=== PATIENT | male | born 1970 | race American Indian/Alaskan Native ===

== ENCOUNTER 2016-12-04 09:12 | Emergency (ER) | payer BC ==
[2016-12-04] MEDS ORDERED: CATAPRES PO ONE (09:57)
--- NOTE | 2016-12-04 10:03 | Emergency Department Report ---
Chief Complaint: High BP Stated Complaint: ELEVATED B/P Time Seen by Provider: 12/04/16 09:55 - HPI History of Present Illness: 46-year-old male with history of hypertension presents today with elevated blood pressure levels. Patient states that he usually takes clonidine 0.2 mg twice daily and HCTZ 25 mg once a day but he ran out of his blood pressure medications 4 days ago. Complaining of blurred vision which he states is usually present when his blood pressure is elevated. Denies headache, dizziness , chest pain, shortness of breath, abdominal pain. - ROS Review of Systems: Per HPI - Exam Vital Signs: Vital Signs 12/04/16 09:20 Temperature 98.3 F Pulse Rate 114 H Respiratory 16 Rate Blood Pressure 185/123 O2 Sat by Pulse 98 Oximetry Physical Exam: General: 46-year-old male in no acute distress. Well-developed, well-nourished. CV: Tachycardic. Regular rhythm. Lungs: Clear to auscultation bilaterally. Abdomen: No tenderness to palpation. No guarding or rebound tenderness. MSE screening note: Focused history and physical exam performed. Due to findings the following was ordered: ED Disposition for MSE Condition: Stable
[2016-12-04 10:55] LABS: Anion Gap 18 mmol/L; Blood Urea Nitrogen 12 mg/dL (9-20); Calcium 9.3 mg/dL (8.4-10.2); Carbon Dioxide 25 mmol/L (22-30); Chloride 96.1 mmol/L (98-107); Glucose 189 mg/dL (75-100); Potassium 3.6 mmol/L (3.6-5.0); Sodium 135 mmol/L (137-145)
[2016-12-04 10:59] LABS: Hematocrit 44.7 % (35.5-45.6); Hemoglobin 15.6 gm/dl (11.8-15.2); Mean Corpuscular Hemoglobin 34 pg (28-32); Mean Corpuscular Volume 97 fl (84-94); Red Blood Count 4.62 M/mm3 (3.65-5.03); White Blood Count 4.3 K/mm3 (4.5-11.0)
[2016-12-04 11:00] LABS: Basophils % (Auto) 0.7 % (0.0-1.8); Eosinophils % (Auto) 0.8 % (0.0-4.3); Mean Corpuscular HGB Conc 35 % (32-34); Platelet Count 185 K/mm3 (140-440); Red Cell Distribution Width 12.5 % (13.2-15.2)
[2016-12-04 11:37] VITALS: BP 188/129
== END 2016-12-04 22:32 | disposition left against medical advice (07) ==
LOC: ED 09:12
DX: H53.8 Other visual disturbances (principal); I10 Essential (primary) hypertension; Z53.21 Procedure and treatment not carried out due to patient leaving prior to being seen by health care provider
CPT/HCPCS: 36415; 80048; 85025

== ENCOUNTER 2016-12-05 08:05 | Emergency (ER) | payer BC ==
[2016-12-05] MEDS ORDERED: CATAPRES ONE (17:10)
[2016-12-05] MEDS ORDERED: CATAPRES PO ONE (17:14)
--- NOTE | 2016-12-05 19:02 | Emergency Department Report ---
ED General Adult HPI - General Chief complaint: High BP Time Seen by Provider: 12/05/16 18:53 Source: patient Mode of arrival: Ambulatory Limitations: No Limitations - History of Present Illness Initial comments: Patient reports being out of his clonidine as well as his chloride hydrochlorothiazide which she takes for his blood pressure. He states that when his blood pressure is elevated he feels a little bit of blurriness in his vision. He denies any chest pain or headache he does have the mild blurriness of his vision currently. Patient is specifically asking only for prescriptions of his routine medications. He was given 0.2 mg of clonidine prior to my arrival here today. He has no other specific complaints at this time. He does indicate he has primary physician he will be able to follow-up in the next 2 or 3 weeks. Onset/Timin -: days(s) Severity scale (0 -10): 0 Improves with: none Worsens with: none Associated Symptoms: other (vision blurriness) Treatments Prior to Arrival: none - Related Data Home Medications Medication Instructions Recorded Confirmed Last Taken Hum Insulin NPH/Reg Insulin Hm 100 unit SQ BID 07/21/13 07/21/13 Unknown [Humulin 70-30 Pen] Previous Rx's Medication Instructions Recorded Last Taken Type Hydrochlorothiazide [HCTZ] 25 mg PO QDAY #30 tablet 07/18/16 Unknown Rx cloNIDine [Catapres] 0.1 mg PO BID #60 tablet 07/18/16 Unknown Rx Hydrochlorothiazide [HCTZ] 25 mg PO QDAY #30 tablet 12/05/16 Unknown Rx cloNIDine [Catapres] 0.2 mg PO BID #60 tablet 12/05/16 Unknown Rx Allergies Allergy/AdvReac Type Severity Reaction Status Date / Time lisinopril Allergy Unknown Verified 12/04/16 09:20 ED Review of Systems ROS: Stated complaint: Other details as noted in HPI Constitutional: denies: chills, fever Eyes: vision change. denies: eye pain, eye discharge ENT: denies: ear pain, throat pain Respiratory: denies: cough, shortness of breath, wheezing Cardiovascular: denies: chest pain, palpitations Endocrine: no symptoms reported Gastrointestinal: denies: abdominal pain, nausea, diarrhea Genitourinary: denies: urgency, dysuria Musculoskeletal: denies: back pain, joint swelling, arthralgia Skin: denies: rash, lesions Neurological: denies: headache, weakness, paresthesias Psychiatric: denies: anxiety, depression Hematological/Lymphatic: denies: easy bleeding, easy bruising ED Past Medical Hx - Past Medical History Previous Medical History?: Yes Hx Hypertension: Yes Hx Diabetes: Yes - Surgical History Past Surgical History?: No - Social History Smoking Status: Never Smoker Substance Use Type: None - Medications Home Medications: Home Medications Medication Instructions Recorded Confirmed Last Taken Type Hum Insulin NPH/Reg Insulin Hm 100 unit SQ BID 07/21/13 07/21/13 Unknown History [Humulin 70-30 Pen] Hydrochlorothiazide [HCTZ] 25 mg PO QDAY #30 tablet 07/18/16 Unknown Rx cloNIDine [Catapres] 0.1 mg PO BID #60 tablet 07/18/16 Unknown Rx Hydrochlorothiazide [HCTZ] 25 mg PO QDAY #30 tablet 12/05/16 Unknown Rx cloNIDine [Catapres] 0.2 mg PO BID #60 tablet 12/05/16 Unknown Rx ED Physical Exam - General Limitations: No Limitations General appearance: alert, in no apparent distress - Head Head exam: Present: atraumatic, normocephalic - Eye Eye exam: Present: normal appearance - ENT ENT exam: Present: mucous membranes moist - Neck Neck exam: Present: normal inspection - Respiratory Respiratory exam: Present: normal lung sounds bilaterally. Absent: respiratory distress - Cardiovascular Cardiovascular Exam: Present: regular rate, normal rhythm. Absent: systolic murmur, diastolic murmur, rubs, gallop - GI/Abdominal GI/Abdominal exam: Present: soft, normal bowel sounds - Rectal Rectal exam: Present: deferred - Extremities Exam Extremities exam: Present: normal inspection - Back Exam Back exam: Present: normal inspection - Neurological Exam Neurological exam: Present: alert, oriented X3, normal gait. Absent: motor sensory deficit - Psychiatric Psychiatric exam: Present: normal affect, normal mood - Skin Skin exam: Present: warm, dry, intact, normal color. Absent: rash ED Course Vital Signs 12/05/16 12/05/16 12/05/16 17:04 17:05 18:49 Pulse Rate 93 H 87 Respiratory 16 16 Rate Blood Pressure 202/123 184/117 [Left] O2 Sat by Pulse 99 99 Oximetry 12/05/16 19:09 Pulse Rate 88 Respiratory 20 Rate Blood Pressure 191/123 [Left] O2 Sat by Pulse Oximetry - Reevaluation(s) Reevaluation #1: 12/06/16 00:40 Patient is well-appearing here. Blood pressure is noted to be quite elevated. He does have his clonidine which she has taken. I am not inclined to try to lower his blood pressure more precipitously at this time. We will have him continue with his routine medications. Prescriptions provided. No concerning features noted. Critical care attestation.: If time is entered above; I have spent that time in minutes in the direct care of this critically ill patient, excluding procedure time. ED Disposition Clinical Impression: Hypertension Qualifiers: Hypertension type: essential hypertension Qualified Code(s): I10 - Essential ( primary) hypertension Disposition: DISCHARGED TO HOME OR SELFCARE Is pt being admited?: No Does the pt Need Aspirin: No Condition: Stable Instructions: Hypertension (ED) Prescriptions: cloNIDine [Catapres] 0.2 mg PO BID #60 tablet Hydrochlorothiazide [HCTZ] 25 mg PO QDAY #30 tablet Referrals: PRIMARY CARE [Primary Care Provider] - 3-5 Days Time of Disposition: 19:02
[2016-12-05 19:10] VITALS: BP 191/123
== END 2016-12-05 19:09 | disposition home or self-care (01) ==
LOC: ED 08:05
DX: I10 Essential (primary) hypertension (principal); E11.9 Type 2 diabetes mellitus without complications; Z88.8 Allergy status to other drugs, medicaments and biological substances
CPT/HCPCS: 99282

== ENCOUNTER 2017-03-20 04:42 | Emergency (ER) | payer SELFPAY ==
[~2017-03-20 04:42] MED LIST: CATAPRES ONE; HCTZ ONE
[2017-03-20] MEDS ORDERED: APRESOLINE IV ONE ×2 (07:00→08:54)
[2017-03-20] MEDS ORDERED: APRESOLINE ONE ×3 (07:40→09:11)
--- NOTE | 2017-03-20 08:09 | Emergency Department Report ---
HPI - General Time Seen by Provider: 03/20/17 08:01 - HPI HPI: This is a 46-year-old -[place] male who presents to the emergency department, driving himself in to be seen, with complaint of elevated blood pressure and uncontrolled diabetes with medication noncompliance. The patient says he went to a physical for a new job and was found to have very elevated blood pressure and an elevated hemoglobin A1c and was told that he needs to get his prescriptions refilled and this stuff under control before he will be accepted for this job. He has a history of hypertension for which she used to be on Catapres 0.2 mg and hydrochlorothiazide 25 mg. He also has a history of [id number] diabetes for which she was on metformin at an unknown dose. He has been out of this medication for months as he does not currently have a primary care doctor due to a lack of insurance. He denies any physical complaints related to these abnormal findings including no chest pain, shortness of breath, headache, slurred speech, nausea, vomiting or fever. He has not taken anything for his complaints prior to presentation. No recent travel or sick contacts at home. He is not a tobacco smoker. He denies any illicit drug use. He says that his diet is "not the best" but it is home cooked meals without excessive salt and he denies excessive caffeine use. ED Past Medical Hx - Past Medical History Hx Hypertension: Yes Hx Diabetes: Yes - Social History Smoking Status: Never Smoker Substance Use Type: None - Medications Home Medications: Home Medications Medication Instructions Recorded Confirmed Last Taken Type Hum Insulin NPH/Reg Insulin Hm 100 unit SQ BID 07/21/13 07/21/13 Unknown History [Humulin 70-30 Pen] cloNIDine [Catapres] 0.1 mg PO BID #60 tablet 07/18/16 Unknown Rx Hydrochlorothiazide [HCTZ] 25 mg PO QDAY #30 tablet 12/05/16 Unknown Rx Hydrochlorothiazide [HCTZ] 25 mg PO QDAY #30 tablet 03/20/17 Unknown Rx cloNIDine [Catapres] 0.2 mg PO BID #60 tablet 03/20/17 Unknown Rx metFORMIN [Glucophage] 500 mg PO BID #60 tablet 03/20/17 Unknown Rx ED Review of Systems ROS: Stated complaint: Other details as noted in HPI Comment: All other systems reviewed and negative Constitutional: denies: chills, fever Eyes: denies: eye pain, eye discharge, vision change ENT: denies: ear pain, throat pain Respiratory: denies: cough, shortness of breath, wheezing Cardiovascular: denies: chest pain, palpitations Gastrointestinal: denies: abdominal pain, nausea, diarrhea Genitourinary: denies: urgency, dysuria Musculoskeletal: denies: back pain, joint swelling, arthralgia Skin: denies: rash, lesions Neurological: denies: headache, weakness, paresthesias Physical Exam - Physical Exam Physical Exam: GENERAL: The patient is well-developed well-nourished. HEENT: Normocephalic. Atraumatic. Extraocular motions are intact. Patient has moist mucous membranes. Pupils equal reactive to light bilaterally. NECK: Supple. Trachea is midline. CHEST/LUNGS: Clear to auscultation. There is no respiratory distress noted. HEART/CARDIOVASCULAR: Regular. There is no tachycardia. There is no gallop rub or murmur. ABDOMEN: Abdomen is soft, nontender. Patient has normal bowel sounds. There is no abdominal distention. SKIN: There is no rash. There is no edema. There is no diaphoresis. NEURO: The patient is awake, alert, and oriented. The patient is cooperative. The patient has no focal neurologic deficits. The patient has normal speech and gait. MUSCULOSKELETAL: There is no tenderness or deformity. There is no limitation range of motion. There is no evidence of acute injury. Muscle strength 5 out of 5 for upper and lower extremities bilaterally. ED Medical Decision Making - EKG Data -: EKG Interpreted by Ri EKG shows normal: sinus rhythm, axis, intervals, QRS complexes (LVH), ST-T waves (inferolateral T wave inversions) Rate: normal - EKG Data When compared to previous EKG there are: previous EKG unavailable Interpretation: other (LVH, inferolateral T wave inversions) - Medical Decision Making This is a 46-year-old male presents to the emergency department with hypertensive urgency and a history of diabetes mellitus with medication noncompliance with both his hypertensive and diabetes medications. Patient was given a dose of the Catapres and hydrochlorothiazide [place] that he is usually on, through triage. When this did not provide enough relief of his hypertension, and IV was placed and he was given IV hydralazine. Upon reevaluation his blood pressure has come down to a much more reasonable level. Patient's first blood sugar check was relatively controlled with a blood sugar of about 150. However while the patient was in the emergency department, he was drinking sweet tea, which is her sugar and his Accu-Chek came back showing a blood sugar of about 350. He was given some IV insulin and later a small dose of subcutaneous insulin and his blood sugar has started to come down and will continue to do so. He is asymptomatic without any chest pain, headache, shortness of breath, abdominal pain, nausea or vomiting. He appears safe for discharge home at this time. He has been given referrals for primary care [facility] and has been given a refill prescriptions of his Catapres, hydrochlorothiazide and metformin. We discussed dietary changes. He will return to the ER with any worsening of symptoms or any acute distress. It should be noted that I saw the patient just prior to discharge and his blood pressure was 158/98 which appears appropriate given the hypertensive urgency for which he presented. - Differential Diagnosis DKA, HHNK, hypertensive urgency, renal vascular disease Critical Care Time: No Critical care attestation.: If time is entered above; I have spent that time in minutes in the direct care of this critically ill patient, excluding procedure time. ED Disposition Clinical Impression: Noncompliance with medication regimen Hypertension Qualifiers: Hypertension type: essential hypertension Qualified Code(s): I10 - Essential ( primary) hypertension Uncontrolled diabetes mellitus Qualifiers: Diabetes mellitus type: type 2 Diabetes mellitus complication status: with hyperglycemia Diabetes mellitus chcf insulin use: without chcf use Qualified Code(s): E11.65 - Type 2 diabetes mellitus with hyperglycemia Disposition: DISCHARGED TO HOME OR SELFCARE Is pt being admited?: No Condition: Stable Instructions: Hypertension (ED), Diabetic Hyperglycemia (ED) Additional Instructions: Please follow-up with a primary care doctor in the next few days. Return to the emergency department with any worsening of your symptoms or any acute distress. I have restarted you on your metformin for your diabetes. I have restarted you on your blood pressure medications. Keep a blood pressure log. Keep a blood sugar log. Try to stay away from foods that are high in salt and caffeinated products to help with her blood pressure. Try to stay away from foods that are high in sugars, starches and carbohydrates in order to help with your diabetes. Prescriptions: cloNIDine [Catapres] 0.2 mg PO BID #60 tablet Hydrochlorothiazide [HCTZ] 25 mg PO QDAY #30 tablet metFORMIN [Glucophage] 500 mg PO BID #60 tablet Referrals: PRIMARY CARE, [Primary Care Provider] - 3-5 Days [facility] [Outside] - 3-5 Days TRAVON ALVARADO MD, PHD [Staff Physician] - 3-5 Days Time of Disposition: 10:30
[2017-03-20 12:09] VITALS: BP 150/97
== END 2017-03-20 10:55 | disposition home or self-care (01) ==
LOC: ED 07:55
DX: I10 Essential (primary) hypertension (principal); E11.65 Type 2 diabetes mellitus with hyperglycemia; Z91.14 Patient's other noncompliance with medication regimen
CPT/HCPCS: 82962; 93005; 93010; 96372; 96374; 96375; 99283; J0360; J1815

== ENCOUNTER 2018-05-13 10:59 | Emergency (ER) | payer BC ==
[2018-05-13] MEDS ORDERED: NORVASC PO ONE (11:31)
[2018-05-13 11:40] LABS: Bilirubin,Urine NEG (Negative); Blood,Urine SM (Negative); Color,Urine Yellow (Yellow); Urobilinogen,Urine < 2.0 mg/dL (<2.0)
[2018-05-13 12:07] LABS: Hematocrit 46.6 % (35.5-45.6); Hemoglobin 15.9 gm/dl (11.8-15.2); Mean Corpuscular HGB Conc 34 % (32-34); Mean Corpuscular Hemoglobin 32 pg (28-32); Mean Corpuscular Volume 94 fl (84-94); Platelet Count 180 K/mm3 (140-440); Red Blood Count 4.96 M/mm3 (3.65-5.03); Red Cell Distribution Width 12.1 % (13.2-15.2)
--- NOTE | 2018-05-13 12:10 | Cat Scan Report ---
CRANIAL CT SCAN: Dizziness Serial contiguous axial images were obtained through the cranium. Intravenous contrast material was not administered. The ventricles are normal in size and appearance. There is no mass effect or midline shift. No areas of abnormally increased or decreased attenuation are seen. No mass lesion is seen. No significant change compared with September 06, 2017. The mastoid air cells and visualized portions of the sinuses are normal. IMPRESSION: Cranial CT scan within normal limits.
[2018-05-13 12:16] LABS: INR 0.91 (0.87-1.13)
[2018-05-13 12:17] LABS: Partial Thromboplastin Time 24.1 Sec. (24.2-36.6)
[2018-05-13 12:20] LABS: BUN/Creatinine Ratio 14; Blood Urea Nitrogen 13 mg/dL (9-20); Calcium 10.3 mg/dL (8.4-10.2); Hemolysis Index 4
[2018-05-13 12:23] LABS: Bilirubin,Direct 0.4 mg/dL (0-0.2)
[2018-05-13 12:50] LABS: Basophils % (Manual) 0 % (0.0-1.8); Eosinophils % (Manual) 0 % (0.0-4.3); Total Cells Counted 100
[2018-05-13 12:51] LABS: Platelet Estimate Cons; RBC Morphology Normal
[2018-05-13 13:04] VITALS: BP 206/140
--- NOTE | 2018-05-13 13:10 | XRay Report ---
AP CHEST :05/13/18 10:59:00 CLINICAL: Weakness. COMPARISON:09/06/17 FINDINGS: Normal heart and pulmonary vasculature. The lungs are normally expanded and clear. The bones and soft tissues are normal. IMPRESSION: Normal chest.
[2018-05-13] MEDS ORDERED: ZOFRAN ODT PO ONE (13:11)
[2018-05-13] MEDS ORDERED: ANTIVERT PO ONE ×2 (13:43→14:10)
--- NOTE | 2018-05-13 13:58 | Emergency Department Report ---
ED General Adult HPI - General Chief complaint: Hyperglycemia Stated complaint: HIGH BP Time Seen by Provider: 05/13/18 11:15 Source: patient Mode of arrival: Ambulatory Limitations: No Limitations - History of Present Illness Initial comments: Patient presents to the emergency department with a chief complaint of hypertension and elevated glucose levels. Patient states he has a history of hypertension and diabetes and has not taken medications for over a year. Patient also complains of dizziness and describes the room is spinning. The dizziness is resolved with sitting still but is exacerbated by turning his head. Patient denies chest pain, normal pain, headache. - Related Data Previous Rx's Medication Instructions Recorded Last Taken Type amLODIPine [Norvasc] 10 mg PO QDAY #30 tablet 09/07/17 Unknown Rx metFORMIN [Glucophage] 500 mg PO BID #60 tablet 09/07/17 Unknown Rx Hydrochlorothiazide [Hctz] 12.5 mg PO QDAY #30 capsule 05/13/18 Unknown Rx amLODIPine [Norvasc] 10 mg PO DAILY #30 tab 05/13/18 Unknown Rx metFORMIN [Glucophage] 500 mg PO QDAY #30 tab 05/13/18 Unknown Rx Allergies Allergy/AdvReac Type Severity Reaction Status Date / Time lisinopril Allergy Unknown Verified 12/04/16 09:20 ED Review of Systems ROS: Stated complaint: HIGH BP Other details as noted in HPI Comment: All other systems reviewed and negative Constitutional: denies: chills, fever Eyes: denies: eye pain, eye discharge, vision change ENT: denies: ear pain, throat pain Respiratory: denies: cough, shortness of breath, wheezing Cardiovascular: denies: chest pain, palpitations Endocrine: no symptoms reported Gastrointestinal: denies: abdominal pain, nausea, diarrhea Genitourinary: denies: urgency, dysuria Musculoskeletal: denies: back pain, joint swelling, arthralgia Skin: denies: rash, lesions Neurological: vertigo. denies: headache, weakness, paresthesias Psychiatric: denies: anxiety, depression Hematological/Lymphatic: denies: easy bleeding, easy bruising ED Past Medical Hx - Past Medical History Previous Medical History?: Yes Hx Hypertension: Yes Hx Diabetes: Yes - Surgical History Past Surgical History?: No - Social History Smoking Status: Never Smoker Substance Use Type: Alcohol, Prescribed - Medications Home Medications: Home Medications Medication Instructions Recorded Confirmed Last Taken Type amLODIPine [Norvasc] 10 mg PO QDAY #30 tablet 09/07/17 05/13/18 Unknown Rx metFORMIN [Glucophage] 500 mg PO BID #60 tablet 09/07/17 05/13/18 Unknown Rx Hydrochlorothiazide [Hctz] 12.5 mg PO QDAY #30 capsule 05/13/18 Unknown Rx amLODIPine [Norvasc] 10 mg PO DAILY #30 tab 05/13/18 Unknown Rx metFORMIN [Glucophage] 500 mg PO QDAY #30 tab 05/13/18 Unknown Rx ED Physical Exam - General Limitations: No Limitations General appearance: alert, in no apparent distress - Head Head exam: Present: atraumatic, normocephalic - Eye Eye exam: Present: normal appearance, PERRL, EOMI - ENT ENT exam: Present: mucous membranes moist - Neck Neck exam: Present: normal inspection - Respiratory Respiratory exam: Present: normal lung sounds bilaterally. Absent: respiratory distress, wheezes, rales - Cardiovascular Cardiovascular Exam: Present: regular rate, normal rhythm. Absent: systolic murmur, diastolic murmur, rubs, gallop - GI/Abdominal GI/Abdominal exam: Present: soft, normal bowel sounds. Absent: distended, tenderness - Rectal Rectal exam: Present: deferred - Extremities Exam Extremities exam: Present: normal inspection - Back Exam Back exam: Present: normal inspection - Neurological Exam Neurological exam: Present: alert, oriented X3, CN II-XII intact, other (able to re-create symptoms with rapid eye and head movement). Absent: motor sensory deficit - Psychiatric Psychiatric exam: Present: normal affect, normal mood - Skin Skin exam: Present: warm, dry, intact, normal color. Absent: rash ED Course Vital Signs 05/13/18 05/13/18 05/13/18 11:04 11:47 12:00 Temperature 97.5 F L Pulse Rate 132 H Respiratory 18 Rate Blood Pressure 221/139 199/135 O2 Sat by Pulse 96 97 94 Oximetry 05/13/18 05/13/18 05/13/18 12:19 12:31 12:45 Temperature Pulse Rate Respiratory Rate Blood Pressure 199/135 189/133 206/140 O2 Sat by Pulse 97 94 96 Oximetry ED Medical Decision Making - Lab Data Result diagrams: 05/13/18 11:48 05/13/18 11:48 - Medical Decision Making Discussed results with the patient Critical care attestation.: If time is entered above; I have spent that time in minutes in the direct care of this critically ill patient, excluding procedure time. ED Disposition Clinical Impression: Hypertension, Diabetes Disposition: DC-01 TO HOME OR SELFCARE Is pt being admited?: No Does the pt Need Aspirin: No Condition: Stable Instructions: Hypertension (ED), Diabetes Mellitus Type 2 in Adults (ED) Additional Instructions: Return if worse Prescriptions: amLODIPine [Norvasc] 10 mg PO DAILY #30 tab Hydrochlorothiazide [Hctz] 12.5 mg PO QDAY #30 capsule metFORMIN [Glucophage] 500 mg PO QDAY #30 tab Referrals: PRIMARY CARE, [Primary Care Provider] - 3-5 Days Time of Disposition: 15:25
[2018-05-13] MEDS ORDERED: CATAPRES PO ONE (14:10)
[2018-05-13] MEDS ORDERED: NACL 0.9% 1000 ML 1,000 ML ONE (14:12)
[2018-05-13] MEDS ORDERED: NACL 0.9% 1000 ML 1,000 ML IV ONE ×2 (14:12→15:19)
== END 2018-05-13 15:35 | disposition home or self-care (01) ==
LOC: ED 10:59
DX: I10 Essential (primary) hypertension (principal); E11.65 Type 2 diabetes mellitus with hyperglycemia; R42 Dizziness and giddiness; Z88.8 Allergy status to other drugs, medicaments and biological substances
CPT/HCPCS: 36415; 70450; 71045; 80048; 80074; 81001; 82805; 82962; 83880; 85007; 85025; 85610; 85730; 93005; 93010; 99285; J7030; Q0162

== ENCOUNTER 2019-06-10 10:42 | Emergency (ER) | payer BC, OTHER ==
--- NOTE | 2019-06-10 12:39 | Emergency Department Report ---
ED General Adult HPI - General Chief complaint: Headache Stated complaint: SUDDEN VISION LOSS (R) EYE Time Seen by Provider: 06/10/19 11:16 Source: patient Mode of arrival: Ambulatory Limitations: No Limitations - History of Present Illness Initial comments: Patient presents to the emergency department with a chief complaint of acute nonpainful right visual loss that occurred 2 and half weeks ago. Patient denies any trauma prior to loss of vision. At the initial onset of vision loss the patient states it felt like some pulled the cover over his right eye. Patient denies a headache, shortness breath or chest pain. Patient states the visual loss is only centrally but he can see peripherally -: Sudden Consistency: constant Improves with: none Worsens with: none Associated Symptoms: denies other symptoms Treatments Prior to Arrival: none - Related Data Previous Rx's Medication Instructions Recorded Last Taken Type amLODIPine [Norvasc] 10 mg PO DAILY #30 tab 05/13/18 Unknown Rx hydroCHLOROthiazide [Hctz] 12.5 mg PO QDAY #30 capsule 05/13/18 Unknown Rx Allergies Allergy/AdvReac Type Severity Reaction Status Date / Time lisinopril Allergy Unknown Verified 12/04/16 09:20 ED Review of Systems ROS: Stated complaint: SUDDEN VISION LOSS (R) EYE Other details as noted in HPI Comment: All other systems reviewed and negative Constitutional: denies: chills, fever Eyes: denies: eye pain, eye discharge, vision change ENT: denies: ear pain, throat pain Respiratory: denies: cough, shortness of breath, wheezing Cardiovascular: denies: chest pain, palpitations Endocrine: no symptoms reported Gastrointestinal: denies: abdominal pain, nausea, diarrhea Genitourinary: denies: urgency, dysuria Musculoskeletal: denies: back pain, joint swelling, arthralgia Skin: denies: rash, lesions Neurological: denies: headache, weakness, paresthesias Psychiatric: denies: anxiety, depression Hematological/Lymphatic: denies: easy bleeding, easy bruising ED Past Medical Hx - Past Medical History Previous Medical History?: Yes Hx Hypertension: Yes Hx Diabetes: Yes - Surgical History Past Surgical History?: No - Social History Smoking Status: Never Smoker Substance Use Type: None - Medications Home Medications: Home Medications Medication Instructions Recorded Confirmed Last Taken Type amLODIPine [Norvasc] 10 mg PO DAILY #30 tab 05/13/18 06/10/19 Unknown Rx hydroCHLOROthiazide [Hctz] 12.5 mg PO QDAY #30 capsule 05/13/18 06/10/19 Unknown Rx ED Physical Exam - General Limitations: No Limitations General appearance: alert, in no apparent distress - Head Head exam: Present: atraumatic, normocephalic - Eye Eye exam: Present: normal appearance, PERRL, EOMI, other (pupils equal and reactive to direct and indirect light, peripheral vision intact, pressures are 18 respectively both eyes) - ENT ENT exam: Present: mucous membranes moist - Neck Neck exam: Present: normal inspection - Respiratory Respiratory exam: Present: normal lung sounds bilaterally. Absent: respiratory distress - Cardiovascular Cardiovascular Exam: Present: regular rate, normal rhythm. Absent: systolic murmur, diastolic murmur, rubs, gallop - GI/Abdominal GI/Abdominal exam: Present: soft, normal bowel sounds. Absent: distended, tenderness - Rectal Rectal exam: Present: deferred - Extremities Exam Extremities exam: Present: normal inspection - Back Exam Back exam: Present: normal inspection - Neurological Exam Neurological exam: Present: alert, oriented X3, CN II-XII intact. Absent: motor sensory deficit - Psychiatric Psychiatric exam: Present: normal affect, normal mood - Skin Skin exam: Present: warm, dry, intact, normal color. Absent: rash ED Course Vital Signs 06/10/19 06/10/19 06/10/19 10:54 10:57 10:58 Temperature 98.7 F Pulse Rate 93 H 109 H Respiratory 15 18 16 Rate Blood Pressure 213/144 O2 Sat by Pulse 100 97 Oximetry 06/10/19 06/10/19 06/10/19 11:00 11:15 11:30 Temperature Pulse Rate 97 H 94 H 92 H Respiratory 20 17 15 Rate Blood Pressure 196/116 187/115 198/124 O2 Sat by Pulse 98 98 98 Oximetry 06/10/19 06/10/19 06/10/19 11:45 12:00 12:15 Temperature Pulse Rate 89 88 91 H Respiratory 17 17 17 Rate Blood Pressure 194/122 194/123 174/128 O2 Sat by Pulse 97 97 99 Oximetry 06/10/19 06/10/19 06/10/19 13:34 13:45 14:00 Temperature Pulse Rate Respiratory Rate Blood Pressure 186/126 169/111 185/122 O2 Sat by Pulse 99 98 98 Oximetry 06/10/19 06/10/19 06/10/19 14:15 14:30 14:45 Temperature Pulse Rate Respiratory Rate Blood Pressure 194/120 187/127 194/128 O2 Sat by Pulse 96 99 Oximetry 06/10/19 06/10/19 06/10/19 15:00 15:15 15:30 Temperature Pulse Rate Respiratory Rate Blood Pressure 200/127 197/144 184/118 O2 Sat by Pulse 99 99 Oximetry 06/10/19 06/10/19 06/10/19 15:45 16:00 16:15 Temperature Pulse Rate Respiratory Rate Blood Pressure 188/119 180/121 184/113 O2 Sat by Pulse 98 Oximetry 06/10/19 06/10/19 06/10/19 16:30 16:45 17:00 Temperature Pulse Rate Respiratory Rate Blood Pressure 187/120 193/125 203/130 O2 Sat by Pulse 99 Oximetry 06/10/19 17:15 Temperature Pulse Rate Respiratory Rate Blood Pressure 201/140 O2 Sat by Pulse Oximetry ED Medical Decision Making - Lab Data Result diagrams: 06/10/19 13:25 06/10/19 13:25 Lab Results 06/10/19 06/10/19 Range/Units 13:25 13:25 WBC 5.2 (4.5-11.0) K/mm3 RBC 4.65 (3.65-5.03) M/mm3 Hgb 15.7 H (11.8-15.2) gm/dl Hct 45.8 H (35.5-45.6) % MCV 99 H (84-94) fl MCH 34 H (28-32) pg MCHC 34 (32-34) % RDW 13.7 (13.2-15.2) % Plt Count 239 (140-440) K/mm3 Lymph % (Auto) 29.6 (13.4-35.0) % [place] % (Auto) 6.7 (0.0-7.3) % Eos % (Auto) 1.0 (0.0-4.3) % Baso % (Auto) 1.2 (0.0-1.8) % Lymph # 1.5 (1.2-5.4) K/mm3 [place] # 0.4 (0.0-0.8) K/mm3 Eos # 0.1 (0.0-0.4) K/mm3 Baso # 0.1 (0.0-0.1) K/mm3 Seg Neutrophils % 61.5 (40.0-70.0) % Seg Neutrophils # 3.2 (1.8-7.7) K/mm3 Sodium 139 (137-145) mmol/L Potassium 3.6 (3.6-5.0) mmol/L Chloride 97.7 L (98-107) mmol/L Carbon Dioxide 26 (22-30) mmol/L Anion Gap 19 mmol/L BUN 10 (9-20) mg/dL Creatinine 0.8 (0.8-1.5) mg/dL Estimated GFR > 60 ml/min BUN/Creatinine Ratio 13 % Glucose 128 H (75-100) mg/dL Calcium 9.9 (8.4-10.2) mg/dL Total Bilirubin 2.10 H (0.1-1.2) mg/dL AST 21 (5-40) units/L ALT 15 (7-56) units/L Alkaline Phosphatase 44 (35-129) units/L Total Protein 8.6 H (6.3-8.2) g/dL Albumin 4.7 (3.9-5) g/dL Albumin/Globulin Ratio 1.2 % - Radiology Data Radiology results: report reviewed - Medical Decision Making Spoke to ophthalmology at [place]( Dr. Castro) and the patient was discussed in detail with the patient having central visual loss for 2-1/2 weeks it was felt that the patient to follow-up as outpatient with ophthalmology. Critical care attestation.: If time is entered above; I have spent that time in minutes in the direct care of this critically ill patient, excluding procedure time. ED Disposition Clinical Impression: Vision loss of right eye Disposition: DC-01 TO HOME OR SELFCARE Is pt being admited?: No Does the pt Need Aspirin: No Condition: Stable Additional Instructions: return if worse Referrals: STACIE CHIRINOS MD [Primary Care Provider] - 3-5 Days YANELY DE LA FUENTE MD [Staff Physician] - 3-5 Days [facility] [Provider Group] - 3-5 Days Time of Disposition: 17:25
--- NOTE | 2019-06-10 13:16 | Cat Scan Report ---
CT head without contrast Clinical history: Headache, right-sided vision loss FINDINGS: The brain appears to demonstrate appropriate attenuation without significant interval camejo e from the previous CT of 05/13/2018. The ventricular system appears unchanged in size and configurati on. There is no clear CT evidence of acute intracranial hemorrhage or significant mass effect. The vi sualized paranasal sinuses are clear. All CT scans at this location are performed using the CT dose r eduction for [employer] by means of automated exposure control. IMPRESSION: There is no CT evidence of acute intracranial process. Signer Name: Goyo Mejia MD Signed: 06/10/2019 1:11 PM Workstation Name: [id number]
[2019-06-10 13:44] LABS: Basophils # (Auto) 0.1 K/mm3 (0.0-0.1); Basophils % (Auto) 1.2 % (0.0-1.8); Eosinophils # (Auto) 0.1 K/mm3 (0.0-0.4); Hematocrit 45.8 % (35.5-45.6); Hemoglobin 15.7 gm/dl (11.8-15.2); Lymphocytes # (Auto) 1.5 K/mm3 (1.2-5.4); Lymphocytes % (Auto) 29.6 % (13.4-35.0); Mean Corpuscular HGB Conc 34 % (32-34); Mean Corpuscular Volume 99 fl (84-94); Monocytes # (Auto) 0.4 K/mm3 (0.0-0.8); Monocytes % (Auto) 6.7 % (0.0-7.3); Platelet Count 239 K/mm3 (140-440); Red Blood Count 4.65 M/mm3 (3.65-5.03); Red Cell Distribution Width 13.7 % (13.2-15.2)
[2019-06-10 14:20] LABS: Alanine Aminotransferase 15 units/L (7-56); Albumin 4.7 g/dL (3.9-5); BUN/Creatinine Ratio 13; Blood Urea Nitrogen 10 mg/dL (9-20); Calcium 9.9 mg/dL (8.4-10.2); Hemolysis Index 25
[2019-06-10 17:43] VITALS: BP 189/122
== END 2019-06-10 17:42 | disposition home or self-care (01) ==
LOC: ED 10:42
DX: H54.61 Unqualified visual loss, right eye, normal vision left eye (principal)
CPT/HCPCS: 36415; 70450; 80053; 85025

== ENCOUNTER 2019-09-02 10:04 | Emergency (ER) | payer SELFPAY ==
[2019-09-02] MEDS ORDERED: cloNIDine 0.2 MG TAB PO ONE (10:40)
[2019-09-02] MEDS ORDERED: cloNIDine 0.1 MG TAB PO ONE (10:48)
[2019-09-02 11:25] LABS: Basophils # (Auto) 0.1 K/mm3 (0.0-0.1); Basophils % (Auto) 1.9 % (0.0-1.8); Eosinophils % (Auto) 1.5 % (0.0-4.3); Hematocrit 37.5 % (35.5-45.6); Hemoglobin 12.7 gm/dl (11.8-15.2); Lymphocytes % (Auto) 35.6 % (13.4-35.0); Mean Corpuscular HGB Conc 34 % (32-34); Mean Corpuscular Volume 99 fl (84-94); Monocytes # (Auto) 0.3 K/mm3 (0.0-0.8); Monocytes % (Auto) 10.7 % (0.0-7.3); Platelet Count 145 K/mm3 (140-440); Red Cell Distribution Width 14.3 % (13.2-15.2)
[2019-09-02 11:42] LABS: BUN/Creatinine Ratio 10; Blood Urea Nitrogen 8 mg/dL (9-20); Calcium 8.5 mg/dL (8.4-10.2); Hemolysis Index 9
[2019-09-02 12:10] LABS: Bilirubin,Urine NEG (Negative); Blood,Urine NEG (Negative); Calcium Oxalate Crystals,Urine 1+; Color,Urine Amber (Yellow); Mucus,Urine FEW /HPF
[2019-09-02] MEDS ORDERED: POTASSIUM CHLORIDE ER 20 MEQ TAB PO ONE (12:10)
--- NOTE | 2019-09-02 12:53 | Emergency Department Report ---
ED General Adult HPI - General Chief complaint: High BP Stated complaint: HIGH BLOOD PRESSURE Time Seen by Provider: 09/02/19 10:39 Source: patient Mode of arrival: Ambulatory Limitations: No Limitations - History of Present Illness Initial comments: This is a 49-year-old male nontoxic, well nourished in appearance, no acute signs of distress presents to the ED with c/o of uncontrolled hypertension. Patient stated he has been out of his medication of HCTZ and Norvasc for 2 weeks. Patient denies any chest pain, short of breath, fever, chills, nausea, vomiting, headache, stiff neck, numbness or tingling. Patient did state he has intermittent in dizziness but does not had any today. Patient stated allergies to lisinopril with no significant past medical history. MD Complaint: medication refill Improves with: none Worsens with: none Associated Symptoms: denies other symptoms. denies: confusion, chest pain, cough, diaphoresis, fever/chills, headaches, loss of appetite, malaise, nausea/vomiting, rash, seizure, shortness of breath, syncope, weakness Treatments Prior to Arrival: none - Related Data Previous Rx's Medication Instructions Recorded Last Taken Type amLODIPine [Norvasc] 10 mg PO DAILY #30 tab 05/13/18 Unknown Rx hydroCHLOROthiazide [HCTZ] 12.5 mg PO QDAY #30 capsule 05/13/18 Unknown Rx amLODIPine [Norvasc] 10 mg PO DAILY #30 tab 06/10/19 Unknown Rx hydroCHLOROthiazide [Hctz] 12.5 mg PO QDAY #30 capsule 06/10/19 Unknown Rx amLODIPine 10 mg PO DAILY #30 tab 09/02/19 Unknown Rx hydroCHLOROthiazide [Hctz] 12.5 mg PO QDAY #30 capsule 09/02/19 Unknown Rx Allergies Allergy/AdvReac Type Severity Reaction Status Date / Time lisinopril Allergy Unknown Verified 12/04/16 09:20 ED Review of Systems ROS: Stated complaint: HIGH BLOOD PRESSURE Other details as noted in HPI Constitutional: denies: chills, fever Eyes: denies: eye pain, eye discharge, vision change ENT: denies: ear pain, throat pain Respiratory: denies: cough, shortness of breath, wheezing Cardiovascular: denies: chest pain, palpitations Endocrine: no symptoms reported Gastrointestinal: denies: abdominal pain, nausea, diarrhea Genitourinary: denies: urgency, dysuria Musculoskeletal: denies: back pain, joint swelling, arthralgia Skin: denies: rash, lesions Neurological: denies: headache, weakness, paresthesias Psychiatric: denies: anxiety, depression Hematological/Lymphatic: denies: easy bleeding, easy bruising ED Past Medical Hx - Past Medical History Previous Medical History?: Yes Hx Hypertension: Yes Hx Diabetes: Yes - Surgical History Past Surgical History?: No - Social History Smoking Status: Former Smoker Substance Use Type: Alcohol - Medications Home Medications: Home Medications Medication Instructions Recorded Confirmed Last Taken Type amLODIPine [Norvasc] 10 mg PO DAILY #30 tab 05/13/18 06/10/19 Unknown Rx hydroCHLOROthiazide [HCTZ] 12.5 mg PO QDAY #30 capsule 05/13/18 06/10/19 Unknown Rx amLODIPine [Norvasc] 10 mg PO DAILY #30 tab 06/10/19 Unknown Rx hydroCHLOROthiazide [Hctz] 12.5 mg PO QDAY #30 capsule 06/10/19 Unknown Rx amLODIPine 10 mg PO DAILY #30 tab 09/02/19 Unknown Rx hydroCHLOROthiazide [Hctz] 12.5 mg PO QDAY #30 capsule 09/02/19 Unknown Rx ED Physical Exam - General Limitations: No Limitations General appearance: alert, in no apparent distress - Head Head exam: Present: atraumatic, normocephalic - Neck Neck exam: Present: normal inspection, full ROM. Absent: tenderness, meningismus, lymphadenopathy - Respiratory Respiratory exam: Present: normal lung sounds bilaterally. Absent: respiratory distress, wheezes, rales, rhonchi, stridor, chest wall tenderness, accessory muscle use, decreased breath sounds, prolonged expiratory - Cardiovascular Cardiovascular Exam: Present: regular rate, normal rhythm, normal heart sounds. Absent: irregular rhythm - Extremities Exam Extremities exam: Present: normal inspection, full ROM - Back Exam Back exam: Present: normal inspection, full ROM - Neurological Exam Neurological exam: Present: alert, oriented X3, normal gait - Psychiatric Psychiatric exam: Present: normal affect, normal mood - Skin Skin exam: Present: warm, dry, intact, normal color. Absent: rash ED Course Vital Signs 09/02/19 09/02/19 09/02/19 10:08 10:37 10:51 Temperature 98.5 F Pulse Rate 112 H 101 H Respiratory 16 17 Rate Blood Pressure 178/122 154/110 O2 Sat by Pulse 97 Oximetry - Reevaluation(s) Reevaluation #1: 09/02/19 12:50 Patient is speaking in full sentences with no signs of distress noted. ED Medical Decision Making - Lab Data Result diagrams: 09/02/19 11:09 09/02/19 11:09 - Medical Decision Making 49-year-old male that presents with medication refill. Patient is stable and was examined by me. Labs has been obtained. EKG obtained with no significant abnormalities. Urine obtained. Patient given Catapres in the ER blood pressure has decreased prior to discharge. Patient was educated on last all modifications as well as keeping a daily diary to presented to primary care doctor. Patient will be discharged with medication refills. Patient was instructed to Follow-up with a primary care doctor in 3-5 days or if symptoms worsen and continue return to emergency room as soon as possible. At time of discharge, the patient does not seem toxic or ill in appearance. No acute signs of distress noted. Patient agrees to discharge treatment plan of care. No further questions noted by the patient. Critical care attestation.: If time is entered above; I have spent that time in minutes in the direct care of this critically ill patient, excluding procedure time. ED Disposition Clinical Impression: Hypokalemia, Uncontrolled hypertension, Medication refill Disposition: DC-01 TO HOME OR SELFCARE Is pt being admited?: No Does the pt Need Aspirin: No Condition: Stable Instructions: Hypertension (ED) Additional Instructions: Follow-up with a primary care doctor in 3-5 days or if symptoms worsen and continue return to emergency room as soon as possible. Prescriptions: amLODIPine 10 mg PO DAILY #30 tab hydroCHLOROthiazide [Hctz] 12.5 mg PO QDAY #30 capsule Referrals: PRIMARY CAREMD [Primary Care Provider] - 3-5 Days CECILIA RASCON MD [Staff Physician] - 3-[address] [facility] [Outside] - 3-[address] [facility] [Outside] - 3-5 Days Forms: Work/School Release Form(ED)
[2019-09-02 13:26] VITALS: BP 173/118
== END 2019-09-02 13:26 | disposition home or self-care (01) ==
LOC: ED 10:04
DX: I10 Essential (primary) hypertension (principal); E87.6 Hypokalemia; Z76.0 Encounter for issue of repeat prescription; E11.9 Type 2 diabetes mellitus without complications; Z87.891 Personal history of nicotine dependence; Z88.5 Allergy status to narcotic agent; Z79.899 Other long term (current) drug therapy
CPT/HCPCS: 36415; 80048; 81001; 85025; 93005; 93010